=== PATIENT | female | born 1945 | race Caucasian/White ===

== ENCOUNTER 2016-12-12 11:06 | Emergency (ER) | payer MEDICARE, OTHER ==
[~2016-12-12] VITALS: Ht 162.6 cm; Wt 99.8 kg
[2016-12-12 11:25] VITALS: BP 125/55
[2016-12-12] MEDS ORDERED: FURO-124 PO (11:45)
[2016-12-12] MEDS ORDERED: OMEP20CA12 PO (11:45)
[2016-12-12] MEDS ORDERED: GLIM2TAB PO (11:45)
[2016-12-12] MEDS ORDERED: SPIR25TA3 PO (11:45)
[2016-12-12] MEDS ORDERED: POTA20PA4 PO (11:45)
[2016-12-12] MEDS ORDERED: OMEP20TA7 PO (11:45)
[2016-12-12] MEDS ORDERED: NEBI5TAB8 PO (11:45)
[2016-12-12] MEDS ORDERED: CLON0.1T PO (11:45)
[2016-12-12] MEDS ORDERED: CETI10TA20 PO (11:45)
--- NOTE | 2016-12-12 12:48 | ED GI ---
General Chief Complaint: Abdominal/GI Problems Stated Complaint: DIARRHEA NAUSEA Nursing Triage Note: ARRIVED VIA AMB TO ROOM 09. COMPLAINS OF DIARRHEA SINCE SATURDAY. RAN A FEVER ON SATURDAY OF 101 BUT AFEBRILE SINCE. Sepsis Screen: No Definite Risk Source of Information: Patient Exam Limitations: No Limitations History of Present Illness Time Seen By Provider: 12:48 Initial Comments 71-year-old female patient presents to the emergency department with complaints of diarrhea beginning Saturday. Patient did have a low-grade fever and 101 on Saturday and Saturday. Afebrile yesterday and today. Denies melena, hematochezia, vomiting, or urinary symptoms. had similar symptoms last week. Timing/Duration: Constant, Other (3 day onset) Severity/Quality: Cramping Location: Generalized Abdomen Radiation: No Radiation Activities at Onset: None Modifying Factors: Worsens With Defecating, Worsens With Eating Allergies and Home Medications Allergies Coded Allergies: Penicillins (Verified Allergy, Severe, SOA, RASH, 12/12/16) Sulfa (Sulfonamide Antibiotics) (Verified Allergy, Severe, HIVES, 12/12/16) acetaminophen (Verified Allergy, Severe, "CRAZY", 12/12/16) codeine (Verified Allergy, Severe, HIVES, 12/12/16) hydrocodone (Verified Allergy, Severe, "CRAZY", 12/12/16) ibuprofen (Verified Allergy, Severe, HYPERTENSION, 12/12/16) morphine (Verified Allergy, Severe, "CRAZY", 12/12/16) tramadol (Verified Allergy, Severe, "CRAZY", 12/12/16) Home Medications Cetirizine HCl 10 Mg Tablet, 10 MG PO DAILY, (Reported) Clonidine HCl 0.1 Mg Tablet, 0.1 MG PO BID, (Reported) Diphenoxylate HCl/Atropine 1 Each Tablet, 1 EACH PO Q6H PRN for DIARRHEA, #30 Ref 0 Prescribed by: INOCENCIA ALVAREZ on 12/12/16 8364 Furosemide 40 Mg Tablet, 40 MG PO DAILY, (Reported) Glimepiride 2 Mg Tablet, 2 MG PO BID, (Reported) Nebivolol HCl 5 Mg Tablet, 5 MG PO, (Reported) Omeprazole 20 Mg Capsule.dr, 20 MG PO, (Reported) Omeprazole 20 Mg Tablet.dr, 20 MG PO DAILY, (Reported) Ondansetron 8 Mg Tab.rapdis, 8 MG PO Q6H PRN for NAUSEA/VOMITING-1ST LINE, #10 Ref 0 Prescribed by: INOCENCIA ALVAREZ on 12/12/16 1429 Potassium Chloride 20 Meq Packet, 20 MEQ PO DAILY, (Reported) Spironolactone 25 Mg Tablet, 25 MG PO BID PRN, (Reported) Review of Systems Constitutional: see HPI, No chills, No fever, malaise Respiratory: No Symptoms Reported Cardiovascular: No Symptoms Reported Gastrointestinal: See HPI, Denies Abdomen Distended, Abdominal Pain ( generalized abdominal cramping. ), Denies Blood Streaked Stools, Denies Constipated, Diarrhea, Nausea, Poor Appetite, Poor Fluid Intake, Denies Rectal Bleeding, Denies Vomiting Genitourinary: Denies Burning, Denies Frequency, Denies Flank Pain, Denies Hematuria, Denies Pain Musculoskeletal: No back pain Skin: no symptoms reported Psychiatric/Neurological: No Symptoms Reported All Other Systems Reviewed Negative Unless Noted: Yes (Negative excepted noted.) Past Mnzrfit-Vupzoc-Fbtugw Hx Patient Social History Alcohol Use: Denies Use Recreational Drug Use: No Smoking Status: Never a Smoker Recent Foreign Travel: No Contact w/Someone Who Travel: No Recent Infectious Disease Expo: No Immunizations Up To Date Date of Pneumonia Vaccine: Apr 12, 2013 Date of Influenza Vaccine: Jun 12, 2013 Surgeries HX Surgeries: Yes (L TOTAL KNEE X2, 18 HERNIA SURG) Respiratory Hx Respiratory Disorders: Yes Respiratory Disorders: Chronic Bronchitis Cardiovascular Hx Cardiac Disorders: Yes Neurological Hx Neurological Disorders: No Genitourinary Hx Genitourinary Disorders: Yes (PROLASPE BLADDER AND BOWEL) Gastrointestinal Hx Gastrointestinal Disorders: Yes Gastrointestinal Disorders: Gastroesophageal Reflux Musculoskeletal Musculoskeletal Disorders: Arthritis Endocrine Hx Endocrine Disorders: No HEENT HX ENT Disorders: No Cancer Hx Cancer: No Psychosocial Hx Psychiatric Problems: No Blood Transfusions Hx Blood Disorders: No Reviewed Nursing Assessment Reviewed/Agree w Nursing PMH: Yes Family Medical History Significant Family History: No Pertinent Family Hx Physical Exam Vital Signs VS - Last 72 Hours, by Label 12/12/16 11:25 Temp 97.6 Pulse 67 Resp 16 B/P (MAP) 125/55 Pulse Ox 97 Capillary Refill : Less Than 3 Seconds General Appearance: WD/WN, no apparent distress Respiratory: lungs clear, normal breath sounds, no respiratory distress Cardiovascular: normal peripheral pulses, regular rate, rhythm, no edema, no murmur Gastrointestinal: normal bowel sounds, soft, no organomegaly, No distended, guarding (LLQ and RLQ), No rebound, tenderness (BLQ), No mass Extremities: no pedal edema, normal capillary refill Back: normal inspection Neurologic/Psychiatric: alert, normal mood/affect, oriented x 3 Skin: normal color, warm/dry Progress/Results/Core Measures Results/Orders Lab Results Laboratory Tests Test 12/12/16 11:45 12/12/16 11:55 Range/Units Urine Color YELLOW Urine Clarity CLEAR Urine pH 5 5-9 Urine Specific [place] 1.020 1.016-1.022 Urine Protein 2+ H NEGATIVE Urine Glucose (UA) NEGATIVE NEGATIVE Urine Ketones 1+ H NEGATIVE Urine Nitrite NEGATIVE NEGATIVE Urine Bilirubin 2+ H NEGATIVE Urine Urobilinogen 1 NORMAL MG/DL Urine Leukocyte Esterase 1+ H NEGATIVE Urine RBC (Auto) NEGATIVE NEGATIVE Urine RBC RARE /HPF Urine WBC RARE /HPF Urine Crystals PRESENT H /LPF Urine Calcium Oxalate Crystals LARGE H /LPF Urine Amorphous Sediment FEW GATO URATES H /LPF Urine Bacteria TRACE /HPF Urine Casts PRESENT /LPF Urine Hyaline Casts 2-5 H /LPF Urine Mucus SMALL H /LPF Urine Culture Indicated NO White Blood Count 5.5 4.3-11.0 10^3/uL Red Blood Count 5.39 4.35-5.85 10^6/uL Hemoglobin 15.5 11.5-16.0 G/DL Hematocrit 45 35-52 % Mean Corpuscular Volume 83 80-99 FL Mean Corpuscular Hemoglobin 29 25-34 PG Mean Corpuscular Hemoglobin Concent 35 32-36 G/DL Red Cell Distribution Width 12.8 10.0-14.5 % Platelet Count 204 130-400 10^3/uL Mean Platelet Volume 10.3 7.4-10.4 FL Neutrophils (%) (Auto) 66 42-75 % Lymphocytes (%) (Auto) 20 12-44 % Monocytes (%) (Auto) 12 0-12 % Eosinophils (%) (Auto) 1 0-10 % Basophils (%) (Auto) 1 0-10 % Neutrophils # (Auto) 3.6 1.8-7.8 X 10^3 Lymphocytes # (Auto) 1.1 1.0-4.0 X 10^3 Monocytes # (Auto) 0.7 0.0-1.0 X 10^3 Eosinophils # (Auto) 0.1 0.0-0.3 10^3/uL Basophils # (Auto) 0.0 0.0-0.1 10^3/uL Sodium Level 136 135-145 MMOL/L Potassium Level 3.7 3.6-5.0 MMOL/L Chloride Level 104 98-107 MMOL/L Carbon Dioxide Level 20 L 21-32 MMOL/L Anion Gap 12 5-14 MMOL/L Blood Urea Nitrogen 19 H 7-18 MG/DL Creatinine 1.12 0.60-1.30 MG/DL Estimat Glomerular Filtration Rate 48 BUN/Creatinine Ratio 17 Glucose Level 110 H 70-105 MG/DL Calcium Level 9.5 8.5-10.1 MG/DL Total Bilirubin 0.8 0.1-1.0 MG/DL Aspartate Amino Transf (AST/SGOT) 42 H 5-34 U/L Alanine Aminotransferase (ALT/SGPT) 46 0-55 U/L Alkaline Phosphatase 86 40-136 U/L Total Protein 7.2 6.4-8.2 G/DL Albumin 4.2 3.2-4.5 G/DL Lipase 25 8-78 U/L My Orders Orders - INOCENCIA ALVAREZ Saline Lock/Iv-Start (12/12/16 12:46) Cbc With Automated Diff (12/12/16 12:46) Comprehensive Metabolic Panel (12/12/16 12:46) Lipase (12/12/16 12:46) Ua Culture If Indicated (12/12/16 12:46) Ct Abdomen/Pelvis W (12/12/16 12:53) Ns Iv 1000 Ml (Sodium Chloride 0.9%) (12/12/16 12:53) Iohexol Injection (Omnipaque 350 Mg/Ml 1 (12/12/16 13:00) Sodium Chloride Flush (Catheter Flush Sy (12/12/16 13:00) Ns (Ivpb) (Sodium Chloride 0.9% Ivpb Bag (12/12/16 13:00) Medications Given in ED Current Medications Medications Dose Ordered Sig/Trisha Route Start Time Stop Time Status Last Admin Dose Admin Sodium Chloride 10 ml NEEDED PRN IV 12/12/16 13:00 12/12/16 14:48 DC 12/12/16 13:33 10 ML Sodium Chloride 100 ml ONCE ONCE IV 12/12/16 13:00 12/12/16 13:01 DC 12/12/16 13:33 80 ML Sodium Chloride 1,000 ml @ 0 mls/hr Q0M ONCE IV 12/12/16 12:53 12/12/16 12:55 DC 12/12/16 13:12 1,000 MLS/HR Vital Signs/I&O Vital Sign - Last 12Hours 12/12/16 11:25 Temp 97.6 Pulse 67 Resp 16 B/P (MAP) 125/55 Pulse Ox 97 Blood Pressure Mean: 78 Diagnostic Imaging Diagonstic Imaging: CT Plain Films/CT/US/NM/MRI: abdomen, pelvis Comments FINDINGS: The lung bases appear clear. The liver, adrenals, and pancreas appear unremarkable. Cholecystectomy clips are seen. The spleen is mildly enlarged measuring 13.2 x 4.8 x 11.9 cm. The CBD is slightly prominent, within normal limits for the patient's age and post cholecystectomy. The kidneys have symmetric enhancement and contrast excretion. Multiple low-attenuation lesions with a dominant mass in the lower pole of the right kidney associated with intrinsic fat density and measuring up to 2 cm in size is suggestive of an angiomyolipoma. The abdominal aorta is normal in caliber. No periaortic significantly enlarged lymph node is seen. There is suggestion of prior hysterectomy. Diverticulosis is seen with no evidence of diverticulitis. There is an excessive amount of luminal fluid seen within the colon and some small bowel loops with no significant dilatation to suggest obstruction. This may relate to enteritis. There is an anterior abdominal bulge and laxity with evidence of prior hernia repair. The appearance is suggestive of abdominal wall weakness and is not associated with a discrete hernia sac. The osseous structures demonstrate degenerative changes in the spine and SI joints. IMPRESSION: 1. Diverticulosis. No diverticulitis. 2. Excessive luminal fluid in the small bowel and colon without evidence of obstruction which may relate to enteritis. Correlate clinically. 3. Mild splenomegaly. 4. Low-attenuation lesion with intrinsic fat densities within the lower pole of the right kidney measuring up to 2 cm, likely an angiomyolipoma. Dictated on workstation # [id number] Reviewed: Reviewed by Me (radiology report reviewed by me.) Departure Communication Progress Notes all laboratory and diagnostic findings discussed with the patient. patient reports she feels better with IVF. plan for dsch to home with lomotil and zofran. all return precautions were discussed with the pt as described in the dsch instructions of this report. patient voices understanding and agrees with the treatment plan. Impression Impression: Primary Impression: Volume depletion Additional Impressions: Diarrhea Qualified Codes: R19.7 - Diarrhea, unspecified Nausea Disposition: HOME, SELF-CARE Condition: Improved Departure-Patient Inst. Decision time for Depature: 14:28 Referrals: NO,LOCAL PHYSICIAN (PCP/Family) Primary Care Physician Patient Instructions: Dehydration, Adult (DC), Diarrhea in Adolescents and Adults Add. Discharge Instructions: All discharge instructions reviewed with patient and/or family. Voiced understanding. Medications as instructed. Drink plenty of fluids. Clear liquid diet until symptoms improve, then increase diet slowly to a low-fat, bland diet. Follow-up with a family practitioner for recheck this week, call for appointment time. Return to the emergency department for worsened pain, vomiting, diarrhea, rectal bleeding, black stools, inability to urinate, fever, or any other concerns. Scripts Diphenoxylate HCl/Atropine (Lomotil 2.5-0.025 mg Tablet) 1 Each Tablet 1 EACH PO Q6H Y for DIARRHEA, #30 TAB 0 Refills Prov: INOCENCIA ALVAREZ 12/12/16 Ondansetron (Ondansetron Odt) 8 Mg Tab.rapdis 8 MG PO Q6H Y for NAUSEA/VOMITING-1ST LINE, #10 TAB 0 Refills Prov: INOCENCIA ALVAREZ 12/12/16 INOCENCIA ALVAREZ December 12, 2016 12:48
[2016-12-12 12:51] LABS: BASOPHILS % (AUTO) 1 % (0-10); EOSINOPHILS # (AUTO) 0.1 10^3/uL (0.0-0.3); EOSINOPHILS % (AUTO) 1 % (0-10); LYMPHOCYTES # (AUTO) 1.1 X 10^3 (1.0-4.0); LYMPHOCYTES % (AUTO) 20 % (12-44); MEAN CORPUSCULAR HEMOGLOBIN 29 PG (25-34); MEAN CORPUSCULAR HGB CONC 35 G/DL (32-36); MEAN CORPUSCULAR VOLUME 83 FL (80-99); MEAN PLATELET VOLUME 10.3 FL (7.4-10.4); MONOCYTES # (AUTO) 0.7 X 10^3 (0.0-1.0); MONOCYTES % (AUTO) 12 % (0-12); NEUTROPHILS # (AUTO) 3.6 X 10^3 (1.8-7.8); NEUTROPHILS % (AUTO) 66 % (42-75); PLATELET COUNT 204 10^3/uL (130-400); RED BLOOD COUNT 5.39 10^6/uL (4.35-5.85); RED CELL DISTRIBUTION WIDTH 12.8 % (10.0-14.5); WHITE BLOOD COUNT 5.5 10^3/uL (4.3-11.0)
[2016-12-12 12:53] LABS: KETONES,URINE 1+ (NEGATIVE); LEUKOCYTE ESTERASE ,URINE 1+ (NEGATIVE); NITRITE,URINE NEGATIVE (NEGATIVE); PH,URINE 5 (5-9); PROTEIN,URINE 2+ (NEGATIVE); UROBILINOGEN,URINE 1 MG/DL (NORMAL)
[2016-12-12] MEDS ORDERED: NS IV 1000 ML 1,000 ML IV ONE (12:53)
[2016-12-12] MEDS ORDERED: NS 100 ML (IVPB) BAG IV ONE (13:00)
[2016-12-12] MEDS ORDERED: IOHEXOL 350 MG/ML 100 ML (OMNIPAQUE 350) VIAL IV ONE (13:00)
[2016-12-12] MEDS ORDERED: CATHETER FLUSH 10 ML SYR IV PRN (13:00)
[2016-12-12 13:07] LABS: ALBUMIN 4.2 G/DL (3.2-4.5); BILIRUBIN,TOTAL 0.8 MG/DL (0.1-1.0); CALCIUM 9.5 MG/DL (8.5-10.1); CREATININE SERUM 1.12 MG/DL (0.60-1.30); POTASSIUM 3.7 MMOL/L (3.6-5.0); TOTAL PROTEIN 7.2 G/DL (6.4-8.2)
[2016-12-12 13:08] LABS: BILIRUBIN,URINE 2+ (NEGATIVE); CALCIUM OXALATE CRYSTALS,UR LARGE /LPF; WBC,URINE RARE /HPF
--- NOTE | 2016-12-12 14:11 | Diagnostic Imaging Report ---
PROCEDURE: CT abdomen and pelvis with contrast. TECHNIQUE: Multiple contiguous axial images were obtained through the abdomen and pelvis after administration of intravenous contrast. INDICATION: Diarrhea. Abdominal pain. CONTRAST: 100 mL of Omnipaque 350 was administered intravenously. FINDINGS: The lung bases appear clear. The liver, adrenals, and pancreas appear unremarkable. Cholecystectomy clips are seen. The spleen is mildly enlarged measuring 13.2 x 4.8 x 11.9 cm. The CBD is slightly prominent, within normal limits for the patient's age and post cholecystectomy. The kidneys have symmetric enhancement and contrast excretion. Multiple low-attenuation lesions with a dominant mass in the lower pole of the right kidney associated with intrinsic fat density and measuring up to 2 cm in size is suggestive of an angiomyolipoma. The abdominal aorta is normal in caliber. No periaortic significantly enlarged lymph node is seen. There is suggestion of prior hysterectomy. Diverticulosis is seen with no evidence of diverticulitis. There is an excessive amount of luminal fluid seen within the colon and some small bowel loops with no significant dilatation to suggest obstruction. This may relate to enteritis. There is an anterior abdominal bulge and laxity with evidence of prior hernia repair. The appearance is suggestive of abdominal wall weakness and is not associated with a discrete hernia sac. The osseous structures demonstrate degenerative changes in the spine and SI joints. IMPRESSION: 1. Diverticulosis. No diverticulitis. 2. Excessive luminal fluid in the small bowel and colon without evidence of obstruction which may relate to enteritis. Correlate clinically. 3. Mild splenomegaly. 4. Low-attenuation lesion with intrinsic fat densities within the lower pole of the right kidney measuring up to 2 cm, likely an angiomyolipoma. Dictated by: Dictated on workstation # [id number]
[2016-12-12] MEDS ORDERED: ONDA8TAB13 PO (14:29)
[2016-12-12] MEDS ORDERED: DIPH1TAB PO (14:34)
== END 2016-12-12 14:48 | disposition home or self-care (01) ==
LOC: EDUNIT# 11:06 → ER 11:08
DX: R19.7 Diarrhea, unspecified (principal); R11.0 Nausea; K57.30 Diverticulosis of large intestine without perforation or abscess without bleeding; N28.9 Disorder of kidney and ureter, unspecified; Z79.899 Other long term (current) drug therapy
CPT/HCPCS: 36415; 74177; 80053; 81000; 83690; 85025; 96360; 96361

== ENCOUNTER 2019-02-13 11:06 | Emergency (ER) | payer MEDICARE, OTHER ==
[~2019-02-13] VITALS: Ht 162.6 cm; Wt 93.0 kg
[~2019-02-13 11:06] MED LIST: CETI10TA20 PO; CLON0.1T PO; DIPH1TAB PO; FURO-124 PO; GLIM2TAB PO; NEBI5TAB8 PO; OMEP20CA12 PO; OMEP20TA7 PO; ONDA8TAB13 PO; POTA20PA34 PO; SPIR25TA5 PO
--- OUTSIDE RECORDS SUMMARY | 2019-02-13 11:29 | XMS REPORT | Continuity of Care Document ---
Author Organization Unknown Address Unknown Allergies Active Description Code Type Severity Reaction Onset Reported/Identified Relationship to Patient Clinical Status Yes acetaminophen [id number] Drug Allergy Severe "CRAZY" 12/12/2016 Yes codeine [id number] Drug Allergy Severe HIVES 12/12/2016 Yes hydrocodone [id number] Drug Allergy Severe "CRAZY" 12/12/2016 Yes ibuprofen [id number] Drug Allergy Severe HYPERTENSION 12/12/2016 Yes morphine [id number] Drug Allergy Severe "CRAZY" 12/12/2016 Yes Penicillins [id number] Drug Allergy Severe SOA, RASH 12/12/2016 Yes Sulfa (Sulfonamide Antibiotics) [id number] Drug Allergy Severe HIVES 12/12/2016 Yes tramadol [id number] Drug Allergy Severe "CRAZY" 12/12/2016 Medications There is no data. Problems Date Dx Coded Attending Type Code Diagnosis Diagnosed By 10/04/2013 MAI LIN MD Ot 458.9 HYPOTENSION NOS 12/12/2016 INOCENCIA KENNY Ot K57.30 DVRTCLOS OF LG INT W/O PERFORATION OR AB 12/12/2016 INOCENCIA KENNY Ot N28.9 DISORDER OF KIDNEY AND URETER, UNSPECIFI 12/12/2016 INOCENCIA KENNY Ot R11.0 NAUSEA 12/12/2016 INOCENCIA KENNY Ot R19.7 DIARRHEA, UNSPECIFIED 12/12/2016 INOCENCIA KENNY Ot Z79.899 OTHER PENITENTIARY (CURRENT) DRUG THERAPY 12/12/2016 INOCENCIA KENNY Ot K57.30 DVRTCLOS OF LG INT W/O PERFORATION OR AB 12/12/2016 INOCENCIA KENNY Ot N28.9 DISORDER OF KIDNEY AND URETER, UNSPECIFI 12/12/2016 INOCENCIA KENNY Ot R11.0 NAUSEA 12/12/2016 INOCENCIA KENNY Ot R19.7 DIARRHEA, UNSPECIFIED 12/12/2016 INOCENCIA KENNY Ot Z79.899 OTHER PEDIATRIC OCCUPATIONAL THERAPIST (CURRENT) DRUG THERAPY 10/30/2017 INOCENCIA KENNY Ot E86.9 VOLUME DEPLETION, UNSPECIFIED 10/30/2017 INOCENCIA KENNY Ot K57.30 DVRTCLOS OF LG INT W/O PERFORATION OR AB 10/30/2017 INOCENCIA KENNY Ot N28.9 DISORDER OF KIDNEY AND URETER, UNSPECIFI 10/30/2017 ANTONIO SILVERINOCENCIA Ot R11.0 NAUSEA 10/30/2017 INOCENCIA KENNY Ot R19.7 DIARRHEA, UNSPECIFIED 10/30/2017 INOCENCIA KENNY Ot Z79.899 OTHER PEDIATRIC OCCUPATIONAL THERAPIST (CURRENT) DRUG THERAPY Procedures There is no data. Results Test Result Range Complete urinalysis with reflex to culture - 12/12/16 11:45 Urine color determination YELLOW NRG Urine clarity determination CLEAR NRG Urine pH measurement by test strip 5 5-9 Specific gravity of urine by test strip 1.020 1.016-1.022 Urine protein assay by test strip, semi-quantitative 2+ NEGATIVE Urine glucose detection by automated test strip NEGATIVE NEGATIVE Erythrocytes detection in urine sediment by light microscopy NEGATIVE NEGATIVE Urine ketones detection by automated test strip 1+ NEGATIVE Urine nitrite detection by test strip NEGATIVE NEGATIVE Urine total bilirubin detection by test strip 2+ NEGATIVE Urine urobilinogen measurement by automated test strip (mass/volume) 1 mg/dL NORMAL Urine leukocyte esterase detection by dipstick 1+ NEGATIVE Automated urine sediment erythrocyte count by microscopy (number/high power field) RARE NRG Automated urine sediment leukocyte count by microscopy (number/high power field) RARE NRG Bacteria detection in urine sediment by light microscopy TRACE NRG Crystals detection in urine sediment by light microscopy PRESENT NRG Casts detection in urine sediment by light microscopy PRESENT NRG Mucus detection in urine sediment by light microscopy SMALL NRG Complete urinalysis with reflex to culture NO NRG Amorphous sediment detection in urine sediment by light microscopy FEW GATO URATES NRG Hyaline casts detection in urine sediment by light microscopy 2-5 NRG Calcium oxalate crystals detection in urine sediment by light microscopy LARGE NRG Complete blood count (CBC) with automated white blood cell (WBC) differential - 12/12/16 11:55 Blood leukocytes automated count (number/volume) 5.5 10*3/uL 4.3-11.0 Blood erythrocytes automated count (number/volume) 5.39 10*6/uL 4.35-5.85 Venous blood hemoglobin measurement (mass/volume) 15.5 g/dL 11.5-16.0 Blood hematocrit (volume fraction) 45 % 35-52 Automated erythrocyte mean corpuscular volume 83 [foz_us] 80-99 Automated erythrocyte mean corpuscular hemoglobin (mass per erythrocyte) 29 pg 25-34 Automated erythrocyte mean corpuscular hemoglobin concentration measurement (mass/volume) 35 g/dL 32-36 Automated erythrocyte distribution width ratio 12.8 % 10.0- 14.5 Automated blood platelet count (count/volume) 204 10*3/uL 130-400 Automated blood platelet mean volume measurement 10.3 [foz_us] 7.4-10.4 Automated blood neutrophils/100 leukocytes 66 % 42-75 Automated blood lymphocytes/100 leukocytes 20 % 12-44 Blood monocytes/100 leukocytes 12 % 0-12 Automated blood eosinophils/100 leukocytes 1 % 0-10 Automated blood basophils/100 leukocytes 1 % 0-10 Blood neutrophils automated count (number/volume) 3.6 10*3 1.8-7.8 Blood lymphocytes automated count (number/volume) 1.1 10*3 1.0-4.0 Blood monocytes automated count (number/volume) 0.7 10*3 0.0- 1.0 Automated eosinophil count 0.1 10*3/uL 0.0-0.3 Automated blood basophil count (count/volume) 0.0 10*3/uL 0.0-0.1 Comprehensive metabolic panel - 12/12/16 11:55 Serum or plasma sodium measurement (moles/volume) 136 mmol/L 135-145 Serum or plasma potassium measurement (moles/volume) 3.7 mmol/L 3.6-5.0 Serum or plasma chloride measurement (moles/volume) 104 mmol/L 98-107 Carbon dioxide 20 mmol/L 21-32 Serum or plasma anion gap determination (moles/volume) 12 mmol/L 5-14 Serum or plasma urea nitrogen measurement (mass/volume) 19 mg/dL 7-18 Serum or plasma creatinine measurement (mass/volume) 1.12 mg/dL 0.60-1.30 Serum or plasma urea nitrogen/creatinine mass ratio 17 NRG Serum or plasma creatinine measurement with calculation of estimated glomerular filtration rate 48 NRG Serum or plasma glucose measurement (mass/volume) 110 mg/dL 70-105 Serum or plasma calcium measurement (mass/volume) 9.5 mg/dL 8.5-10.1 Serum or plasma total bilirubin measurement (mass/volume) 0.8 mg/dL 0.1-1.0 Serum or plasma alkaline phosphatase measurement (enzymatic activity/volume) 86 U/L 40-136 Serum or plasma aspartate aminotransferase measurement (enzymatic activity/volume) 42 U/L 5-34 Serum or plasma alanine aminotransferase measurement (enzymatic activity/volume) 46 U/L 0-55 Serum or plasma protein measurement (mass/volume) 7.2 g/dL 6.4-8.2 Serum or plasma albumin measurement (mass/volume) 4.2 g/dL 3.2-4.5 Lipase - 12/12/16 11:55 Lipase 25 U/L 8-78 Encounters ACCT No. Visit Date/Time Discharge Status Pt. Type Provider Facility Loc./Unit Complaint [id number] 12/12/2016 11:08:00 12/12/2016 14:48:00 DIS Outpatient INOCENCIA KENNY [facility] ER DIARRHEA NAUSEA [id number] 10/04/2013 19:05:00 10/04/2013 20:45:00 DIS Emergency MAI LIN MD [facility] ER LOW BP
--- NOTE | 2019-02-13 11:30 | NUR ---
pt here with " friend and gpt relates been outside but does not remember poison ivy. gallego" they are in the w/r. pt alert gcs 15. pt c/o rash x 3 days that itches and is spreading. no rash noted to back, chest, abd or lower ext. rash noted to face and webs of fingers and arms and periorbital areas. pt denies dyspnea and no acute sighns of dyspbnea noted. lungs equal cta bilaterally. done avel pt at 1138.
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
[2019-02-13] MEDS ORDERED: TRIAMCINOLONE ACET (KENALOG-40) 40 MG/ML 1 ML VIAL IM ONE (11:45)
[2019-02-13] MEDS ORDERED: BETAMETHASONE ACE/NA PHOS 6 MG/ML (CELESTONE SOLUSPAN) IM ONE (11:45)
[2019-02-13 12:05] VITALS: BP 123/63
--- NOTE | 2019-02-13 12:05 | NUR ---
d/c instructions to pt. told to read all papers. no scripts given. pt left ambulatory by self. pt knows f/u. i went over the handtyped by information on the chart. pt had no iv.
--- NOTE | 2019-02-13 12:05 | NUR ---
pt denies dyspnea and no acute sighns of dyspnea noted at d/c.
== END 2019-02-13 12:05 | disposition home or self-care (01) ==
LOC: EDUNIT# 11:06 → ER 11:07
DX: L23.7 Allergic contact dermatitis due to plants, except food (principal); J42 Unspecified chronic bronchitis; K21.9 Gastro-esophageal reflux disease without esophagitis; Z88.0 Allergy status to penicillin; Z88.2 Allergy status to sulfonamides; Z88.5 Allergy status to narcotic agent; Z79.84 Long term (current) use of oral hypoglycemic drugs
CPT/HCPCS: 96372; 99284